=== PATIENT | male | born 1980 | race African-American/Black ===

== ENCOUNTER 2017-01-17 02:15 | Emergency (ER) | payer OTHER ==
[~2017-01-17] VITALS: Ht 180.3 cm; Wt 83.5 kg
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
[2017-01-17 02:30] VITALS: BP 118/74
[2017-01-17] MEDS ORDERED: HYDROmorphone 1mg/ml Carpuject IM ONE (02:30)
[2017-01-17 04:00] VITALS: BP 122/72
[2017-01-17] MEDS ORDERED: HYDROCODON-ACE1 EA15 ORAL (04:18)
[2017-01-17 05:15] VITALS: BP 125/70
[2017-01-17 05:24] VITALS: BP 125/70
--- NOTE | 2017-01-17 10:08 | Diagnostic Imaging Report ---
Indication: Facial trauma and pain Technique: Continuous helical transaxial imaging of the maxillofacial structures obtained without intravenous contrast administration. Coronal 2-D reformats were also obtained. Study obtained in a Siemens sensation [address] Total Dose length Product (DLP): [address] Dose Index Volume (CTDIvol): 28 mGy Comparison: None Findings: There is no evidence of an acute fracture. The mastoids are essentially clear. There is submucosal thickening within the paranasal sinuses. Soft tissues are unremarkable. Orbits appear normal. Impression: No acute injury Sinusitis [facility] has communicated the preliminary results to the Emergency Department. Their findings are largely concordant with this report. The CT scanner at [facility] is accredited by the [employer] and the scans are performed using dose optimization techniques as appropriate to a performed exam including Automatic Exposure control.
--- NOTE | 2017-01-17 11:06 | Diagnostic Imaging Report ---
Indication: Headache Technique: Contiguous 5 mm thick transaxial imaging of the head obtained in a Siemens Sensation [address] scanner. Soft tissue and bone windows generated. Total Dose length Product (DLP): [address] Dose Index Volume (CTDIvol): 70.38 mGy Comparison: none Findings: The size and configuration of the cortical sulci, basal cisterns, and ventricles are within normal limits for age. There is no mass effect, midline shift, or edema identified. There is no evidence of acute hemorrhage or abnormal intra-axial or extra-axial fluid collections. The bones and soft tissues are unremarkable. Impression: No mass effect, edema or acute bleed. [facility] has communicated the preliminary results to the Emergency Department. Their findings are largely concordant with this report. The CT scanner at [facility] is accredited by the [employer] and the scans are performed using dose optimization techniques as appropriate to a performed exam including Automatic Exposure control.
--- NOTE | 2017-01-17 11:28 | Diagnostic Imaging Report ---
Indication: Pain Comparison: None Findings: Two views of the left tibia and fibula were obtained. Acute fracture of the mid shaft of the fibula demonstrated. No definite tibial fracture identified. Impression: Acute fibular fracture
--- NOTE | 2017-01-17 11:35 | Diagnostic Imaging Report ---
Indication: left ankle pain Comparison: None Findings: 3 views of the left ankle obtained. There is evidence of acute deltoid ligament disruption with a lateral subluxation of the talus with respect to the tibia. There is a suspected fracture posteriorly, probably the posterior malleolus of the tibia, but this is not for certain. Impression: Unstable injury of the ankle with deltoid ligament rupture and lateral subluxation of the tibiotalar joint. Questionable posterior fracture only seen on the lateral view. Unable to tell whether this is involving the posterior inferior tibia or the posterior part of the fibula. Other views could be obtained for clarification.
== END 2017-01-17 05:24 | disposition home or self-care (01) ==
LOC: EDBD 02:15 → EMR 02:27
DX: S82.842A Displaced bimalleolar fracture of left lower leg, initial encounter for closed fracture (principal); S09.90XA Unspecified injury of head, initial encounter; S00.83XA Contusion of other part of head, initial encounter; S82.445A Nondisplaced spiral fracture of shaft of left fibula, initial encounter for closed fracture; Y09 Assault by unspecified means; Y93.9 Activity, unspecified; Y92.9 Unspecified place or not applicable; J32.9 Chronic sinusitis, unspecified
CPT/HCPCS: 29505; 70450; 70486; 73590; 73610; 96372; 99284; J1170